=== PATIENT | female | born 1960 | race Two or more races ===

== ENCOUNTER 2022-11-29 12:00 | Emergency (ER) | payer MEDICARE, MEDICAID ==
[2022-11-29] MEDS ORDERED: Sodium Chloride 0.9% 1,000 ML IV ONE (12:07)
[2022-11-29 12:32] LABS: ESTIMATED GFR 63 mL/min (>60)
[2022-11-29] MEDS ORDERED: Ondansetron 4 MG/2 ML SDV IVPUSH ONE (12:33)
[2022-11-29] MEDS ORDERED: Morphine 2 MG/ML SYRINGE IVPUSH ONE (12:36)
[2022-11-29] MEDS ORDERED: Metoprolol Tartrate 5 MG/5 ML SDV IVPUSH ONE ×3 (12:46→15:04)
[2022-11-29] MEDS ORDERED: Midazolam 1 MG/ML 2 ML SDV IVPUSH ONE (13:09)
[2022-11-29] MEDS ORDERED: LORazepam 2 MG/ML SDV IVPUSH ONE (13:15)
[2022-11-29] MEDS ORDERED: Potassium Chloride 20 MEQ Tab.ER PO ONE (13:44)
[2022-11-29] MEDS ORDERED: amLODIPine 5 MG Tab PO ONE (13:45)
[2022-11-29] MEDS ORDERED: Heparin Sodium 5,000 Units/ML Vial IVPUSH ONE (15:01)
[2022-11-29] MEDS ORDERED: Heparin Sodium/0.45% NaCl 25,000 UNITS/500 ML BAG IV SCH (15:15)
[2022-11-29] MEDS: Aspirin 81 MG Tab.Chew PO ONE ×2 (15:43→15:52)
[2022-11-29] MEDS ORDERED: Iopamidol 755 Mg/ML 100 ML Bottle IV ONE (16:15)
== END 2022-11-29 20:59 ==
LOC: FB.ED 12:00
DX: I63.9 Cerebral infarction, unspecified (principal); F41.0 Panic disorder [episodic paroxysmal anxiety]; E86.0 Dehydration; R77.8 Other specified abnormalities of plasma proteins; R79.89 Other specified abnormal findings of blood chemistry; I10 Essential (primary) hypertension; F12.10 Cannabis abuse, uncomplicated; F17.210 Nicotine dependence, cigarettes, uncomplicated; E87.6 Hypokalemia; H53.461 Homonymous bilateral field defects, right side; K21.9 Gastro-esophageal reflux disease without esophagitis; Z88.0 Allergy status to penicillin; Z98.41 Cataract extraction status, right eye; Z79.899 Other long term (current) drug therapy
CPT/HCPCS: 36415; 70450; 70496; 70498; 71045; 80053; 81001; 83605; 84443; 84484; 85025; 85610; 85730; 86140; 87040; 93005; 93010; 96361; 96365; 96366; 96375; 96376; 99285; 99285-25; A9270-GY; J1644; J2060; J2270; J2405; J3490; J7030; Q9967

== ENCOUNTER 2023-04-20 01:20 | Emergency (ER) | payer MEDICARE, MEDICAID ==
[2023-04-20] MEDS ORDERED: Sodium Chloride 0.9% 10 ML Syringe FLUSH PRN (02:01)
[2023-04-20 02:30] LABS: BLOOD UREA NITROGEN,BUN 25 mg/dL (7-18); BUN/CREATININE RATIO 22.7 (9-20); CARBON DIOXIDE,CO2 28 mmol/L (21-32); CHLORIDE,CL 104 mmol/L (100-110); CREATININE 1.1 mg/dL (0.55-1.02); ESTIMATED GFR 56 mL/min (>60); GLUCOSE RANDOM 102 mg/dL (80-116); POTASSIUM,K 3.4 mmol/L (3.5-5.3); SODIUM,NA 139 mmol/L (135-145)
[2023-04-20 02:35] LABS: BASOPHILS ABSOLUTE AUTO 0.1 x10-3/uL (0.0-0.1); BASOPHILS PERCENT AUTO 0.9 % (0.2-1.5); EOSINOPHILS ABSOLUTE AUTO 0.5 x10-3/uL (0.0-0.8); EOSINOPHILS PERCENT AUTO 4.2 % (0.6-8.1); HEMATOCRIT 39.4 % (34.2-48.2); HEMOGLOBIN 13.1 g/dL (11.4-15.5); LYMPHOCYTES ABSOLUTE AUTO 3.1 x10-3/uL (1.0-4.4); LYMPHOCYTES PERCENT AUTO 27.1 % (18.4-52.1); MEAN CORPUSCULAR HEMOGLOBIN 31.3 pg (23.9-33.9); MEAN CORPUSCULAR HGB CONC 33.3 g/dL (31.9-34.8); MONOCYTES PERCENT AUTO 9.1 % (4.4-15.7); NEUTROPHILS ABSOLUTE AUTO 6.6 x10-3/uL (1.5-6.3); NEUTROPHILS PERCENT AUTO 58.7 % (30.8-76.2); PLATELET COUNT,PLT 315 x10(3)uL (151-488); RED BLOOD CELL COUNT 4.19 x10(6)uL (3.60-5.20); RED CELL DISTRIBUTION WIDTH 13.1 % (12.3-16.5); WHITE BLOOD CELL COUNT,WBC 11.2 x10-3/uL (3.0-10.3)
[2023-04-20 02:36] LABS: A/G RATIO 0.9; ALANINE AMINOTRANSFERASE,ALT 38 U/L (12-36); ALBUMIN 3.6 g/dL (3.2-4.6); ALKALINE PHOSPHATASE 59 IU/L (56-112); ASPARTATE AMNIOTRANSFERASE,AST 27 IU/L (5-25); BILIRUBIN TOTAL 0.2 mg/dL (0.1-1.3); PROTEIN TOTAL,TP 7.7 g/dL (6.0-8.0)
[2023-04-20 02:45] LABS: INR 0.95 (1.00-1.24); PROTHROMBIN TIME 9.8 sec (9.0-11.1); PTT,PARTIAL THROMBOPLSTIN TIME 25.7 SECONDS (24.4-33.2)
[2023-04-20] MEDS ORDERED: Sodium Chloride 0.9% 1,000 ML IV SCH (03:15)
== END 2023-04-20 03:38 ==
LOC: FB.ED 01:20
DX: I63.9 Cerebral infarction, unspecified (principal); E86.0 Dehydration; E87.6 Hypokalemia; I10 Essential (primary) hypertension; J44.9 Chronic obstructive pulmonary disease, unspecified; K21.9 Gastro-esophageal reflux disease without esophagitis; Z86.16 Personal history of COVID-19; Z88.0 Allergy status to penicillin; Z79.899 Other long term (current) drug therapy
CPT/HCPCS: 36415; 70450; 71045; 80053; 84484; 85025; 85610; 85730; 93005; 99285; J7030; 93010; 99284

== ENCOUNTER 2023-12-25 10:53 | Emergency (ER) | payer MEDICAID, MEDICARE ==
[2023-12-25] MEDS: Sodium Chloride 0.9% 1,000 ML IV ONE (11:40)
[2023-12-25 11:49] LABS: BLOOD UREA NITROGEN,BUN 19 mg/dL (7-18); CALCIUM 9.3 mg/dL (8.6-10.2); CARBON DIOXIDE,CO2 28 mmol/L (21-32); CHLORIDE,CL 102 mmol/L (100-110); EST CRCL DRUG DOSING (CG) 42.32 mL/min; ESTIMATED GFR 63 mL/min (>60); GLUCOSE RANDOM 95 mg/dL (80-116); POTASSIUM,K 3.6 mmol/L (3.5-5.3); SODIUM,NA 140 mmol/L (135-145)
[2023-12-25 11:50] LABS: BASOPHILS ABSOLUTE AUTO 0.1 x10-3/uL (0.0-0.1); BASOPHILS PERCENT AUTO 0.9 % (0.2-1.5); EOSINOPHILS ABSOLUTE AUTO 0.4 x10-3/uL (0.0-0.8); EOSINOPHILS PERCENT AUTO 3.4 % (0.6-8.1); HEMATOCRIT 39.5 % (34.2-48.2); HEMOGLOBIN 13.2 g/dL (11.4-15.5); LYMPHOCYTES ABSOLUTE AUTO 2.9 x10-3/uL (1.0-4.4); MEAN CORPUSCULAR HEMOGLOBIN 32.2 pg (23.9-33.9); MEAN CORPUSCULAR HGB CONC 33.6 g/dL (31.9-34.8); MEAN CORPUSCULAR VOLUME 95.8 fL (76.7-100.5); MEAN PLATELET VOLUME 9.2 fL (7.1-12.4); MONOCYTES PERCENT AUTO 8.2 % (4.4-15.7); NEUTROPHILS ABSOLUTE AUTO 7.7 x10-3/uL (1.5-6.3); NEUTROPHILS PERCENT AUTO 63.5 % (30.8-76.2); PLATELET COUNT,PLT 384 x10(3)uL (151-488); RED BLOOD CELL COUNT 4.12 x10(6)uL (3.60-5.20); RED CELL DISTRIBUTION WIDTH 13.7 % (12.3-16.5); WHITE BLOOD CELL COUNT,WBC 12.1 x10-3/uL (3.0-10.3)
[2023-12-25 11:54] LABS: A/G RATIO 1.1; ALANINE AMINOTRANSFERASE,ALT 32 U/L (12-36); ALBUMIN 4.1 g/dL (3.2-4.6); ALKALINE PHOSPHATASE 59 IU/L (56-112); ASPARTATE AMNIOTRANSFERASE,AST 20 IU/L (5-25); BILIRUBIN TOTAL 0.5 mg/dL (0.1-1.3)
[2023-12-25 11:59] LABS: TROPONIN I 43.4 pg/mL (4.0-60.3)
[2023-12-25 12:16] LABS: C-REACTIVE PROTEIN < 0.50 mg/dL (<0.50)
[2023-12-25 12:59] LABS: APPEARANCE,URINE CLEAR (CLEAR); BACTERIA,URINE NOT SEEN (NS); BILIRUBIN,URINE NEGATIVE (NEGATIVE); COLOR,URINE YELLOW (YELLOW); GLUCOSE,URINE NORMAL (NORMAL); KETONES,URINE NEGATIVE (NEGATIVE); LEUKOCYTE ESTERASE,URINE NEGATIVE (NEGATIVE); NITRITE,URINE NEGATIVE (NEGATIVE); OCCULT BLOOD,URINE NEGATIVE (NEGATIVE); PROTEIN,URINE NEGATIVE (NEGATIVE); RBC,URINE NOT SEEN (0-5); SQUAMOUS EPITHELIAL CELLS,UR RARE (NS,R,O); UROBILINOGEN,URINE NORMAL (NEGATIVE); WBC,URINE 0-5 (0-5)
[2023-12-25 13:31] LABS: INFLUENZA A NAA NEGATIVE (NEGATIVE); INFLUENZA B NAA NEGATIVE (NEGATIVE); RESPIRATORY SYNCYTIAL VIR NAA NEGATIVE (NEGATIVE)
[2023-12-25 13:33] LABS: CORONAVIRUS COVID-19 NAA NEGATIVE (NEGATIVE)
== END 2023-12-25 13:35 | disposition home or self-care (01) ==
LOC: FB.ED 10:53
DX: R39.2 Extrarenal uremia (principal); E86.0 Dehydration; I10 Essential (primary) hypertension; J44.9 Chronic obstructive pulmonary disease, unspecified; K21.9 Gastro-esophageal reflux disease without esophagitis; Z86.16 Personal history of COVID-19; Z88.0 Allergy status to penicillin; Z79.899 Other long term (current) drug therapy
CPT/HCPCS: 0241U; 36415; 71046; 80053; 81001; 83605; 84484; 85025; 86140; 93005; 93010; 96360; 99284; 99285-25; J7030

== ENCOUNTER 2024-05-26 15:00 | Emergency (ER) | payer MEDICARE ==
[2024-05-26 15:40] LABS: BASOPHILS ABSOLUTE AUTO 0.1 x10-3/uL (0.0-0.1); BASOPHILS PERCENT AUTO 0.7 % (0.2-1.5); EOSINOPHILS ABSOLUTE AUTO 0.6 x10-3/uL (0.0-0.8); EOSINOPHILS PERCENT AUTO 5.3 % (0.6-8.1); HEMATOCRIT 38.8 % (34.2-48.2); HEMOGLOBIN 12.8 g/dL (11.4-15.5); LYMPHOCYTES ABSOLUTE AUTO 3.6 x10-3/uL (1.0-4.4); LYMPHOCYTES PERCENT AUTO 29.7 % (18.4-52.1); MEAN CORPUSCULAR HEMOGLOBIN 31.1 pg (23.9-33.9); MEAN CORPUSCULAR HGB CONC 32.9 g/dL (31.9-34.8); MEAN CORPUSCULAR VOLUME 94.4 fL (76.7-100.5); MEAN PLATELET VOLUME 9.4 fL (7.1-12.4); MONOCYTES ABSOLUTE AUTO 1.4 x10-3/uL (0.3-1.0); MONOCYTES PERCENT AUTO 11.7 % (4.4-15.7); NEUTROPHILS ABSOLUTE AUTO 6.3 x10-3/uL (1.5-6.3); NEUTROPHILS PERCENT AUTO 52.6 % (30.8-76.2); PLATELET COUNT,PLT 354 x10(3)uL (151-488); RED BLOOD CELL COUNT 4.11 x10(6)uL (3.60-5.20); RED CELL DISTRIBUTION WIDTH 13.8 % (12.3-16.5)
[2024-05-26 15:43] LABS: BLOOD UREA NITROGEN,BUN 15 mg/dL (7-18); CALCIUM 8.7 mg/dL (8.6-10.2); CARBON DIOXIDE,CO2 28 mmol/L (21-32); CHLORIDE,CL 104 mmol/L (100-110); CREATININE 1.5 mg/dL (0.55-1.02); EST CRCL DRUG DOSING (CG) 26.86 mL/min; ESTIMATED GFR 38 mL/min (>60); GLUCOSE RANDOM 96 mg/dL (80-116); POTASSIUM,K 3.4 mmol/L (3.5-5.3); SODIUM,NA 140 mmol/L (135-145)
[2024-05-26] MEDS: Sodium Chloride 0.9% 1,000 ML IV ONE (15:43)
[2024-05-26 15:49] LABS: A/G RATIO 0.8; ALANINE AMINOTRANSFERASE,ALT 17 U/L (12-36); ALBUMIN 3.5 g/dL (3.2-4.6); ALKALINE PHOSPHATASE 73 IU/L (56-112); ASPARTATE AMNIOTRANSFERASE,AST 14 IU/L (5-25); BILIRUBIN TOTAL 0.5 mg/dL (0.1-1.3); PROTEIN TOTAL,TP 7.8 g/dL (6.0-8.0)
[2024-05-26 15:51] LABS: C-REACTIVE PROTEIN 0.6 mg/dL (<0.50); TROPONIN I 35.1 pg/mL (4.0-60.3)
[2024-05-26] MEDS: HYDROmorphone 2 MG/ML SDV IVPUSH ONE (16:34)
[2024-05-26] MEDS: Ondansetron 4 MG/2 ML SDV IVPUSH ONE ×2 (16:34→17:51)
[2024-05-26 16:36] LABS: BILIRUBIN,URINE NEGATIVE (NEGATIVE); GLUCOSE,URINE NORMAL (NORMAL); KETONES,URINE NEGATIVE (NEGATIVE); LEUKOCYTE ESTERASE,URINE NEGATIVE (NEGATIVE); NITRITE,URINE NEGATIVE (NEGATIVE); OCCULT BLOOD,URINE NEGATIVE (NEGATIVE); PROTEIN,URINE NEGATIVE (NEGATIVE); UROBILINOGEN,URINE NORMAL (NEGATIVE)
[2024-05-26 16:37] LABS: APPEARANCE,URINE CLEAR (CLEAR); BACTERIA,URINE RARE (NS); COLOR,URINE YELLOW (YELLOW); RBC,URINE NOT SEEN (0-5); SQUAMOUS EPITHELIAL CELLS,UR RARE (NS,R,O); WBC,URINE 0-5 (0-5)
[2024-05-26] MEDS: Ciprofloxacin 500 MG Tab PO ONE (19:41)
== END 2024-05-26 19:57 | disposition home or self-care (01) ==
LOC: FB.ED 15:00
DX: K57.32 Diverticulitis of large intestine without perforation or abscess without bleeding (principal); I10 Essential (primary) hypertension; J44.9 Chronic obstructive pulmonary disease, unspecified; K21.9 Gastro-esophageal reflux disease without esophagitis; Z86.16 Personal history of COVID-19; Z90.710 Acquired absence of both cervix and uterus; Z79.899 Other long term (current) drug therapy; Z88.0 Allergy status to penicillin; Z88.8 Allergy status to other drugs, medicaments and biological substances
CPT/HCPCS: 74176; 80053; 81001; 83605; 83690; 84484; 85025; 86140; 93005; 96361; 96374; 96375; 96376; 99284; A9270; J1170; J2405; J7030; 93010

== ENCOUNTER 2024-07-21 06:28 | Day surgery (SDC) | payer BC, MEDICARE ==
[2024-07-21] MEDS ORDERED: Midazolam 1 MG/ML 2 ML SDV IV ONE (06:29)
[2024-07-21] MEDS ORDERED: fentaNYL 100 MCG/2 ML SDV IV ONE (06:29)
[2024-07-21] MEDS ORDERED: Sodium Chloride 0.9% 10 ML Syringe IV ONE (06:29)
[2024-07-21] MEDS ORDERED: Lactated Ringers 1,000 ML IV PRN (06:45)
[2024-07-21] MEDS ORDERED: Sodium Chloride 0.9% 10 ML Syringe FLUSH PRN (06:45)
[2024-07-21] MEDS: acetaZOLAMIDE 500 MG Cap.ER PO ONE (09:19)
== END 2024-07-21 09:40 | disposition home or self-care (01) ==
LOC: FB.SDS 06:28 → MERGE 08:30 → FB.SDS 09:40
PROVIDERS: ATTEND Ophthalmology
DX: H26.9 Unspecified cataract (principal); I10 Essential (primary) hypertension; M81.0 Age-related osteoporosis without current pathological fracture; F41.8 Other specified anxiety disorders; I63.9 Cerebral infarction, unspecified; K21.9 Gastro-esophageal reflux disease without esophagitis; Z79.899 Other long term (current) drug therapy; Z88.0 Allergy status to penicillin; Z88.8 Allergy status to other drugs, medicaments and biological substances; Z87.891 Personal history of nicotine dependence
CPT/HCPCS: 66984; A9270; J2250; J3010; J3490; V2632; 00142

== ENCOUNTER 2024-08-04 05:45 | Day surgery (SDC) | payer MEDICARE ==
[2024-08-04] MEDS ORDERED: Midazolam 1 MG/ML 2 ML SDV IV ONE (05:46)
[2024-08-04] MEDS ORDERED: fentaNYL 100 MCG/2 ML SDV IV ONE (05:46)
[2024-08-04] MEDS ORDERED: Sodium Chloride 0.9% 10 ML Syringe FLUSH PRN (06:45)
[2024-08-04] MEDS: Lactated Ringers 1,000 ML IV SCH (07:35)
[2024-08-04] MEDS: acetaZOLAMIDE 500 MG Cap.ER PO ONE (08:57)
== END 2024-08-04 09:10 | disposition home or self-care (01) ==
LOC: FB.SDS 05:45
PROVIDERS: ATTEND Ophthalmology
DX: H26.9 Unspecified cataract (principal); I10 Essential (primary) hypertension; M81.0 Age-related osteoporosis without current pathological fracture; F41.8 Other specified anxiety disorders; I63.9 Cerebral infarction, unspecified; Z79.899 Other long term (current) drug therapy; Z88.0 Allergy status to penicillin; Z87.891 Personal history of nicotine dependence
CPT/HCPCS: 00142; A9270-GY; J2250; J3010; J7120; V2632

== ENCOUNTER 2025-01-27 07:23 | Day surgery (SDC) | payer MEDICARE ==
[2025-01-27] MEDS ORDERED: Lidocaine 2% 100 MG/5 ML Syringe IVPUSH ONE (07:24)
[2025-01-27] MEDS ORDERED: Propofol 200 MG/20 ML SDV IV ONE (07:24)
[2025-01-27] MEDS ORDERED: Midazolam 1 MG/ML 2 ML SDV IV ONE (07:24)
[2025-01-27] MEDS ORDERED: Sodium Chloride 0.9% 10 ML Syringe FLUSH PRN (07:45)
[2025-01-27] MEDS: Lactated Ringers 1,000 ML IV SCH (08:20)
[2025-01-27] MEDS: Simethicone Drops 40 MG/0.6 ML 30 ML Bottle ONE (10:07)
[2025-01-29 21:06] LABS: LACTOFERRIN,FECAL BY ELISA Negative (Negative)
[2025-01-29 22:51] LABS: ADENOVIRUS 40/41 PCR Not Detected; ASTROVIRUS PCR Not Detected; CAMPYLOBACTER PCR Not Detected; CRYPTOSPORIDIUM PCR Not Detected; CYCLOSPORA CAYETANENSIS PCR Not Detected; ENTAMOEBA HISTOLYTICA PCR Not Detected; ENTEROAGGREGATIVE E. COLI PCR Not Detected; ENTEROPATHOGENIC E. COLI PCR Not Detected; ENTEROTOXIGENIC E. COLI PCR Not Detected; GIARDIA LAMBLIA PCR Not Detected; NOROVIRUS GI/GII PCR Detected; PLESIOMONAS SHIGELLOIDES PCR Not Detected; ROTAVIRUS A PCR Not Detected; SALMONELLA PCR Not Detected; SAPOVIRUS PCR Not Detected; SHIG/ENTEROINVASIVE E COLI PCR Not Detected; SHIGA TOXIN-PRODUC E. COLI PCR Not Detected; VIBRIO CHOLERAE PCR Not Detected; VIBRIO PCR Not Detected; YERSINIA ENTEROCOLITICA PCR Not Detected
== END 2025-01-27 11:30 | disposition home or self-care (01) ==
LOC: FB.SDS 07:23
PROVIDERS: ATTEND Surgery
DX: K57.30 Diverticulosis of large intestine without perforation or abscess without bleeding (principal); K44.9 Diaphragmatic hernia without obstruction or gangrene; K21.9 Gastro-esophageal reflux disease without esophagitis; I10 Essential (primary) hypertension; F32.A Depression, unspecified; F41.9 Anxiety disorder, unspecified; Z79.899 Other long term (current) drug therapy
CPT/HCPCS: 00813; 83630; 87507; 88305; 88342; A9270-GY; J2250; J2704; J7120

== ENCOUNTER 2025-07-19 00:53 | Emergency (ER) | payer MEDICARE ==
[2025-07-19] MEDS ORDERED: Sodium Chloride 0.9% 10 ML Syringe FLUSH PRN (01:08)
[2025-07-19 01:19] LABS: BLOOD UREA NITROGEN,BUN 21 mg/dL (7-18); CARBON DIOXIDE,CO2 27 mmol/L (21-32); CHLORIDE,CL 99 mmol/L (100-110); CREATININE 1.6 mg/dL (0.55-1.02); ESTIMATED GFR 35 mL/min (>60); GLUCOSE RANDOM 104 mg/dL (80-116); POTASSIUM,K 3.0 mmol/L (3.5-5.3); SODIUM,NA 135 mmol/L (135-145)
[2025-07-19 01:25] LABS: A/G RATIO 0.7; ALANINE AMINOTRANSFERASE,ALT 36 U/L (12-36); ASPARTATE AMNIOTRANSFERASE,AST 28 IU/L (5-25); BILIRUBIN TOTAL 0.4 mg/dL (0.1-1.3); PROTEIN TOTAL,TP 7.7 g/dL (6.0-8.0)
[2025-07-19 01:27] LABS: MEAN PLATELET VOLUME 8.7 fL (7.1-12.4); PLATELET COUNT,PLT 314 x10(3)uL (151-488); RED BLOOD CELL COUNT 3.83 x10(6)uL (3.60-5.20); RED CELL DISTRIBUTION WIDTH 13.0 % (12.3-16.5); WHITE BLOOD CELL COUNT,WBC 13.4 x10-3/uL (3.0-10.3)
[2025-07-19 01:29] LABS: LACTIC ACID 1.1 mmol/L (0.4-2.0)
[2025-07-19] MEDS: Ketorolac 30 MG/ML SDV IVPUSH ONE (01:33)
[2025-07-19] MEDS: Ketorolac 15 MG/ML SDV IVPUSH ONE (01:33)
[2025-07-19] MEDS: Ondansetron 4 MG/2 ML SDV IVPUSH ONE (01:34)
[2025-07-19] MEDS: Potassium Chloride 20 MEQ Tab.ER PO ONE (01:36)
[2025-07-19 01:37] LABS: BASOPHILS PERCENT MAN 1 % (0-2); EOSINOPHILS PERCENT MAN 3 % (0-5); LYMPHOCYTES PERCENT MAN 25 % (13-37); MONOCYTES PERCENT MAN 10 % (4-12); SEG NEUTROPHILS PERCENT MAN 61 % (46-82)
[2025-07-19 02:21] LABS: GLUCOSE,URINE NORMAL (NORMAL); OCCULT BLOOD,URINE NEGATIVE (NEGATIVE)
[2025-07-19 02:23] LABS: APPEARANCE,URINE SLIGHTLY CLOUDY (CLEAR)
[2025-07-19 02:28] LABS: SQUAMOUS EPITHELIAL CELLS,UR FEW (NS,R,O)
== END 2025-07-19 03:25 | disposition home or self-care (01) ==
LOC: FB.ED 00:53
DX: K57.92 Diverticulitis of intestine, part unspecified, without perforation or abscess without bleeding (principal); E78.00 Pure hypercholesterolemia, unspecified; I10 Essential (primary) hypertension; Z88.8 Allergy status to other drugs, medicaments and biological substances; Z88.0 Allergy status to penicillin; Z79.899 Other long term (current) drug therapy
CPT/HCPCS: 36415; 74176; 80053; 81001; 83605; 83690; 85025; 86140; 96361; 96374; 96375; 99284; A9270; J1885; J2405; J7030

== ENCOUNTER 2025-09-07 16:22 | Inpatient (IN) | payer MEDICARE ==
[2025-09-07 17:19] LABS: MEAN PLATELET VOLUME 9.5 fL (7.1-12.4); PLATELET COUNT,PLT 327 x10(3)uL (151-488); RED BLOOD CELL COUNT 3.74 x10(6)uL (3.60-5.20); RED CELL DISTRIBUTION WIDTH 14.4 % (12.3-16.5); WHITE BLOOD CELL COUNT,WBC 15.1 x10-3/uL (3.0-10.3)
[2025-09-07] MEDS: Ondansetron 4 MG/2 ML SDV IVPUSH ONE (17:22)
[2025-09-07 17:25] LABS: BLOOD UREA NITROGEN,BUN 11 mg/dL (7-18); CARBON DIOXIDE,CO2 30 mmol/L (21-32); CHLORIDE,CL 102 mmol/L (100-110); CREATININE 0.9 mg/dL (0.55-1.02); EST CRCL DRUG DOSING (CG) 43.57 mL/min; ESTIMATED GFR 70 mL/min (>60); GLUCOSE RANDOM 99 mg/dL (80-116); POTASSIUM,K 3.8 mmol/L (3.5-5.3); SODIUM,NA 141 mmol/L (135-145)
[2025-09-07 17:31] LABS: A/G RATIO 0.7; ALANINE AMINOTRANSFERASE,ALT 21 U/L (12-36); ASPARTATE AMNIOTRANSFERASE,AST 17 IU/L (5-25); BILIRUBIN TOTAL 0.4 mg/dL (0.1-1.3); PROTEIN TOTAL,TP 7.6 g/dL (6.0-8.0)
[2025-09-07] MEDS ORDERED: Naloxone 0.4 MG/ML SDV IVPUSH PRN ×2 (17:45→19:28)
[2025-09-07 17:46] LABS: BAND PERCENT MAN 6 % (0-6); LYMPHOCYTES PERCENT MAN 21 % (13-37); SEG NEUTROPHILS PERCENT MAN 60 % (46-82)
[2025-09-07 17:47] LABS: MONOCYTES PERCENT MAN 13 % (4-12)
[2025-09-07] MEDS: HYDROmorphone 2 MG/ML SDV IVPUSH ONE ×2 (17:51→20:28)
[2025-09-07] MEDS: Iopamidol 755 Mg/ML 100 ML Bottle IV SCH (18:18)
[2025-09-07 19:05] LABS: GLUCOSE,URINE NORMAL (NORMAL); OCCULT BLOOD,URINE NEGATIVE (NEGATIVE)
[2025-09-07 19:07] LABS: APPEARANCE,URINE CLEAR (CLEAR)
[2025-09-07] MEDS: metroNIDAZOLE/Normal Saline 500 MG in Premix Bag 1 BAG IV SCH (20:44)
[2025-09-07] MEDS: Saccharomyces Boulardii (Probiotic) 250 MG Cap PO SCH (20:45)
[2025-09-08 06:42] LABS: BASOPHILS ABSOLUTE AUTO 0.1 x10-3/uL (0.0-0.1); BASOPHILS PERCENT AUTO 0.6 % (0.2-1.5); EOSINOPHILS ABSOLUTE AUTO 0.3 x10-3/uL (0.0-0.8); EOSINOPHILS PERCENT AUTO 2.9 % (0.6-8.1); LYMPHOCYTES ABSOLUTE AUTO 3.0 x10-3/uL (1.0-4.4); LYMPHOCYTES PERCENT AUTO 30.5 % (18.4-52.1); MEAN PLATELET VOLUME 8.7 fL (7.1-12.4); MONOCYTES ABSOLUTE AUTO 2.4 x10-3/uL (0.3-1.0); MONOCYTES PERCENT AUTO 24.1 % (4.4-15.7); NEUTROPHILS ABSOLUTE AUTO 4.1 x10-3/uL (1.5-6.3); NEUTROPHILS PERCENT AUTO 41.9 % (30.8-76.2); PLATELET COUNT,PLT 280 x10(3)uL (151-488); RED BLOOD CELL COUNT 3.37 x10(6)uL (3.60-5.20); RED CELL DISTRIBUTION WIDTH 14.3 % (12.3-16.5); WHITE BLOOD CELL COUNT,WBC 9.9 x10-3/uL (3.0-10.3)
[2025-09-08 07:09] LABS: BLOOD UREA NITROGEN,BUN 6 mg/dL (7-18); CARBON DIOXIDE,CO2 28 mmol/L (21-32); CHLORIDE,CL 109 mmol/L (100-110); CREATININE 0.8 mg/dL (0.55-1.02); EST CRCL DRUG DOSING (CG) 49.01 mL/min; ESTIMATED GFR 81 mL/min (>60); GLUCOSE RANDOM 90 mg/dL (80-116); POTASSIUM,K 3.4 mmol/L (3.5-5.3); SODIUM,NA 144 mmol/L (135-145)
[2025-09-08] MEDS: buPROPion 150 MG Tab.ER PO SCH (09:14)
[2025-09-08] MEDS: Potassium Chloride 10 MEQ Tab.ER PO ONE (10:26)
[2025-09-08] MEDS: Ondansetron 4 MG/2 ML SDV IV PRN (20:57)
[2025-09-08] MEDS: HYDROmorphone 2 MG/ML SDV IVPUSH PRN (20:59)
[2025-09-09] MEDS: Pantoprazole 20 MG Tab, Delayed Release PO SCH (06:24)
[2025-09-09 06:28] LABS: BASOPHILS ABSOLUTE AUTO 0.1 x10-3/uL (0.0-0.1); BASOPHILS PERCENT AUTO 0.5 % (0.2-1.5); EOSINOPHILS ABSOLUTE AUTO 0.4 x10-3/uL (0.0-0.8); EOSINOPHILS PERCENT AUTO 4.2 % (0.6-8.1); LYMPHOCYTES ABSOLUTE AUTO 2.9 x10-3/uL (1.0-4.4); LYMPHOCYTES PERCENT AUTO 29.0 % (18.4-52.1); MEAN PLATELET VOLUME 8.7 fL (7.1-12.4); MONOCYTES ABSOLUTE AUTO 1.9 x10-3/uL (0.3-1.0); MONOCYTES PERCENT AUTO 18.9 % (4.4-15.7); NEUTROPHILS ABSOLUTE AUTO 4.7 x10-3/uL (1.5-6.3); NEUTROPHILS PERCENT AUTO 47.4 % (30.8-76.2); PLATELET COUNT,PLT 283 x10(3)uL (151-488); RED BLOOD CELL COUNT 3.35 x10(6)uL (3.60-5.20); RED CELL DISTRIBUTION WIDTH 14.1 % (12.3-16.5); WHITE BLOOD CELL COUNT,WBC 9.9 x10-3/uL (3.0-10.3)
[2025-09-09 06:35] LABS: A/G RATIO 0.7; ALANINE AMINOTRANSFERASE,ALT 14 U/L (12-36); ASPARTATE AMNIOTRANSFERASE,AST 15 IU/L (5-25); BILIRUBIN TOTAL 0.4 mg/dL (0.1-1.3); CARBON DIOXIDE,CO2 26 mmol/L (21-32); CHLORIDE,CL 107 mmol/L (100-110); CREATININE 0.7 mg/dL (0.55-1.02); EST CRCL DRUG DOSING (CG) 56.02 mL/min; ESTIMATED GFR 95 mL/min (>60); GLUCOSE RANDOM 91 mg/dL (80-116); PROTEIN TOTAL,TP 6.2 g/dL (6.0-8.0); SODIUM,NA 142 mmol/L (135-145)
[2025-09-09 06:45] LABS: BLOOD UREA NITROGEN,BUN < 5 mg/dL (7-18); POTASSIUM,K 2.8 mmol/L (3.5-5.3)
[2025-09-09] MEDS: Potassium Chloride 20 MEQ Tab.ER PO SCH (09:37)
[2025-09-09] MEDS: NS + KCl 20mEq/L 1,000 ML IV SCH (09:47)
[2025-09-10 07:11] LABS: MEAN PLATELET VOLUME 8.7 fL (7.1-12.4); PLATELET COUNT,PLT 304 x10(3)uL (151-488); RED BLOOD CELL COUNT 3.44 x10(6)uL (3.60-5.20); RED CELL DISTRIBUTION WIDTH 14.2 % (12.3-16.5); WHITE BLOOD CELL COUNT,WBC 12.4 x10-3/uL (3.0-10.3)
[2025-09-10 07:20] LABS: A/G RATIO 0.7; ALANINE AMINOTRANSFERASE,ALT 14 U/L (12-36); ASPARTATE AMNIOTRANSFERASE,AST 18 IU/L (5-25); BILIRUBIN TOTAL 0.6 mg/dL (0.1-1.3); CARBON DIOXIDE,CO2 25 mmol/L (21-32); CHLORIDE,CL 108 mmol/L (100-110); CREATININE 0.7 mg/dL (0.55-1.02); EST CRCL DRUG DOSING (CG) 56.02 mL/min; ESTIMATED GFR 95 mL/min (>60); GLUCOSE RANDOM 83 mg/dL (80-116); POTASSIUM,K 3.7 mmol/L (3.5-5.3); PROTEIN TOTAL,TP 6.6 g/dL (6.0-8.0); SODIUM,NA 142 mmol/L (135-145)
[2025-09-10 07:22] LABS: BLOOD UREA NITROGEN,BUN < 5 mg/dL (7-18)
[2025-09-10 07:31] LABS: EOSINOPHILS PERCENT MAN 4 % (0-5); LYMPHOCYTES PERCENT MAN 28 % (13-37); MONOCYTES PERCENT MAN 13 % (4-12); SEG NEUTROPHILS PERCENT MAN 55 % (46-82)
[2025-09-10] MEDS: Sodium Chloride 0.9% 10 ML Syringe FLUSH PRN (12:41)
[2025-09-11 06:47] LABS: BASOPHILS ABSOLUTE AUTO 0.0 x10-3/uL (0.0-0.1); BASOPHILS PERCENT AUTO 0.3 % (0.2-1.5); EOSINOPHILS ABSOLUTE AUTO 0.4 x10-3/uL (0.0-0.8); EOSINOPHILS PERCENT AUTO 3.4 % (0.6-8.1); LYMPHOCYTES ABSOLUTE AUTO 2.8 x10-3/uL (1.0-4.4); LYMPHOCYTES PERCENT AUTO 22.8 % (18.4-52.1); MEAN PLATELET VOLUME 8.7 fL (7.1-12.4); MONOCYTES ABSOLUTE AUTO 1.8 x10-3/uL (0.3-1.0); MONOCYTES PERCENT AUTO 14.3 % (4.4-15.7); NEUTROPHILS ABSOLUTE AUTO 7.3 x10-3/uL (1.5-6.3); NEUTROPHILS PERCENT AUTO 59.2 % (30.8-76.2); PLATELET COUNT,PLT 325 x10(3)uL (151-488); RED BLOOD CELL COUNT 3.47 x10(6)uL (3.60-5.20); RED CELL DISTRIBUTION WIDTH 14.3 % (12.3-16.5); WHITE BLOOD CELL COUNT,WBC 12.4 x10-3/uL (3.0-10.3)
[2025-09-11 07:01] LABS: A/G RATIO 0.6; ALANINE AMINOTRANSFERASE,ALT 12 U/L (12-36); ASPARTATE AMNIOTRANSFERASE,AST 18 IU/L (5-25); BILIRUBIN TOTAL 0.5 mg/dL (0.1-1.3); CARBON DIOXIDE,CO2 26 mmol/L (21-32); CHLORIDE,CL 105 mmol/L (100-110); CREATININE 0.8 mg/dL (0.55-1.02); EST CRCL DRUG DOSING (CG) 49.01 mL/min; ESTIMATED GFR 81 mL/min (>60); GLUCOSE RANDOM 107 mg/dL (80-116); POTASSIUM,K 2.9 mmol/L (3.5-5.3); PROTEIN TOTAL,TP 6.8 g/dL (6.0-8.0); SODIUM,NA 141 mmol/L (135-145)
[2025-09-11 07:03] LABS: BLOOD UREA NITROGEN,BUN < 5 mg/dL (7-18)
[2025-09-11] MEDS: Potassium Chloride 20 MEQ Tab.ER PO ONE (12:17)
[2025-09-11] MEDS: Magnesium Sulfate 2 GM/50 mL 2 GM in Premix Bag 1 BAG IV ONE (12:18)
[2025-09-11] MEDS: Potassium Chloride 20 MEQ in Premix Bag 1 BAG IV ONE (12:41)
[2025-09-12 06:45] LABS: BASOPHILS ABSOLUTE AUTO 0.1 x10-3/uL (0.0-0.1); BASOPHILS PERCENT AUTO 0.5 % (0.2-1.5); EOSINOPHILS ABSOLUTE AUTO 0.5 x10-3/uL (0.0-0.8); EOSINOPHILS PERCENT AUTO 3.9 % (0.6-8.1); LYMPHOCYTES ABSOLUTE AUTO 2.9 x10-3/uL (1.0-4.4); LYMPHOCYTES PERCENT AUTO 23.2 % (18.4-52.1); MEAN PLATELET VOLUME 8.5 fL (7.1-12.4); MONOCYTES ABSOLUTE AUTO 1.5 x10-3/uL (0.3-1.0); MONOCYTES PERCENT AUTO 12.1 % (4.4-15.7); NEUTROPHILS ABSOLUTE AUTO 7.6 x10-3/uL (1.5-6.3); NEUTROPHILS PERCENT AUTO 60.3 % (30.8-76.2); PLATELET COUNT,PLT 356 x10(3)uL (151-488); RED BLOOD CELL COUNT 3.44 x10(6)uL (3.60-5.20); RED CELL DISTRIBUTION WIDTH 13.8 % (12.3-16.5); WHITE BLOOD CELL COUNT,WBC 12.6 x10-3/uL (3.0-10.3)
[2025-09-12 06:51] LABS: BLOOD UREA NITROGEN,BUN 6 mg/dL (7-18); CARBON DIOXIDE,CO2 27 mmol/L (21-32); CHLORIDE,CL 106 mmol/L (100-110); CREATININE 0.7 mg/dL (0.55-1.02); EST CRCL DRUG DOSING (CG) 56.02 mL/min; ESTIMATED GFR 95 mL/min (>60); GLUCOSE RANDOM 107 mg/dL (80-116); POTASSIUM,K 3.6 mmol/L (3.5-5.3); SODIUM,NA 142 mmol/L (135-145)
== END 2025-09-12 13:55 | disposition home or self-care (01) | DRG 373 ==
LOC: FB.ED 16:22 → FB.MS 19:49
PROVIDERS: ADMIT Emergency Medicine; ATTEND Internal Medicine
DX: K57.32 Diverticulitis of large intestine without perforation or abscess without bleeding (principal); K52.9 Noninfective gastroenteritis and colitis, unspecified; A04.72 Enterocolitis due to Clostridium difficile, not specified as recurrent; Z66 Do not resuscitate; I48.0 Paroxysmal atrial fibrillation; K21.9 Gastro-esophageal reflux disease without esophagitis; E83.42 Hypomagnesemia; E87.6 Hypokalemia; H40.9 Unspecified glaucoma; E78.00 Pure hypercholesterolemia, unspecified; J45.909 Unspecified asthma, uncomplicated; I10 Essential (primary) hypertension; M81.0 Age-related osteoporosis without current pathological fracture; F41.9 Anxiety disorder, unspecified; E86.0 Dehydration; F32.A Depression, unspecified; D64.9 Anemia, unspecified; Z86.16 Personal history of COVID-19; Z98.890 Other specified postprocedural states; Z88.0 Allergy status to penicillin; Z88.8 Allergy status to other drugs, medicaments and biological substances; Z79.01 Long term (current) use of anticoagulants; Z79.899 Other long term (current) drug therapy; Z98.49 Cataract extraction status, unspecified eye; Z86.73 Personal history of transient ischemic attack (TIA), and cerebral infarction without residual deficits; Z98.51 Tubal ligation status; Z87.891 Personal history of nicotine dependence
CPT/HCPCS: 36415; 74177; 80053; 81003; 83605; 83690; 83735; 85025; 86140; 87040 ×2; 87230; 96361; 96374; 96375; 99285; J1171; J2405; J7030; Q9967; 80048; 94150; 99222; 99231; 99232; 99238; A9270-GY; J1836; J2470; J2765; J3475; J3480